=== PATIENT | male | born 1960 | race Caucasian/White ===

== ENCOUNTER 2022-09-13 16:11 | Inpatient (IN) | payer OTHER, SELFPAY ==
[2022-09-13] MEDS ORDERED: Piperacillin/Tazobactam 3.375 GM in Sodium Chloride 0.9% 100 ML IVPB SCH (18:00)
[2022-09-13] MEDS ORDERED: Dextrose 5% in Water 1,000 ML IV PRN (18:04)
[2022-09-13] MEDS ORDERED: Dextrose 50% Abboject 50 ML SYRINGE SLOW IVP PRN (18:04)
[2022-09-13] MEDS: D5 1/2 NS w/20 mEq KCL 1,000 ML IV SCH (18:14)
[2022-09-13 18:24] VITALS: BMI 49.8
[2022-09-13] MEDS: Morphine 4 MG/ML VIAL SLOW IVP PRN (22:17)
[2022-09-13] MEDS: Ondansetron PF 4 MG/2 ML Vial IVP PRN (22:18)
[2022-09-13] MEDS: Piperacillin/Tazobactam 3.375 GM in Sodium Chloride 0.9% 100 ML IVPB SCH (22:18)
[2022-09-14] MEDS ORDERED: Acetaminophen 325 MG TAB PO PRN (04:11)
[2022-09-14] MEDS: Morphine 4 MG/ML VIAL SLOW IVP PRN ×2 (04:17→17:50)
[2022-09-14] MEDS: Ondansetron PF 4 MG/2 ML Vial IVP PRN (04:17)
[2022-09-14] MEDS: D5 1/2 NS w/20 mEq KCL 1,000 ML IV SCH ×2 (04:21→09:40)
[2022-09-14] MEDS: Piperacillin/Tazobactam 3.375 GM in Sodium Chloride 0.9% 100 ML IVPB SCH ×3 (05:24→21:17)
[2022-09-14 06:31] LABS: ALT (SGPT) 72 U/L (8-55); AST (SGOT) 30 U/L (5-34); Albumin 3.6 g/dL (3.5-5.0); Alkaline Phosphatase 342 U/L (40-110); Anion Gap 17 mmol/L (10-20); BUN (Urea Nitrogen) 14 mg/dL (8.4-25.7); Bilirubin, Direct 1.6 mg/dL (0.1-0.3); Bilirubin, Total 2.2 mg/dL (0.2-1.2); Calc. Creatinine Clearance 192 mL/min (70-130); Calcium 9.3 mg/dL (7.8-10.44); Carbon Dioxide 19 mmol/L (22-29); Chloride 97 mmol/L (98-107); Estimated GFR 92; Glucose 135 mg/dL (70-105); Lipase 17 U/L (8-78); Potassium 4.4 mmol/L (3.5-5.1); Protein, Total 7.4 g/dL (6.0-8.3); Sodium 129 mmol/L (136-145)
[2022-09-14 06:52] LABS: Band 7 % (5-11); Hemoglobin 16.4 g/dL (14.0-18.0); Lymphocytes 6 % (21-51); MDiff Complete? YES; Mean Corpuscular HGB CONC 33.8 g/dL (32.0-36.0); Mean Corpuscular Hemoglobin 33.1 pg (27.0-31.0); Mean Corpuscular Volume 97.8 fl (78.0-98.0); Mean Platelet Volume 6.9 fL (7.4-10.4); Monocytes 5 % (0-10); Neutrophil 82 % (42-75); Platelet Count 218 10x3/uL (130-400); Platelet Morphology Comment Appears Adequate; RBC Morphology Normal; Red Blood Cell (RBC) Count 4.95 mill/uL (4.70-6.10); White Blood Cell (WBC) Count 17.9 10x3/uL (4.8-10.8)
[2022-09-14] MEDS ORDERED: Lisinopril 20 MG TAB PO SCH (09:00)
[2022-09-14] MEDS ORDERED: Amlodipine 10 MG TAB PO SCH (09:00)
[2022-09-14] MEDS: Sodium Chloride 0.9% 1,000 ML IV SCH ×2 (12:32→21:25)
[2022-09-14] MEDS ORDERED: Fentanyl 250 MCG/5 ML VIAL ONE (13:18)
[2022-09-14] MEDS ORDERED: SUGAMMADEX SODIUM 200 MG/2 ML VIAL ONE (13:18)
[2022-09-14] MEDS ORDERED: Bupivacaine/Epinephrine 0.25% 30 ML VIAL ONE (13:21)
[2022-09-14] MEDS ORDERED: Iopamidol 30 ML ONE (13:21)
[2022-09-14] MEDS ORDERED: Sodium Chloride 0.9% 100 ML ONE (13:27)
[2022-09-14] MEDS ORDERED: Piperacillin/Tazobactam 3.375 GM VIAL ONE (13:27)
[2022-09-14] MEDS ORDERED: Dexamethasone 20 MG/5 ML VIAL ONE (13:35)
[2022-09-14] MEDS ORDERED: Lidocaine 1% PF 5 ML VIAL ONE (13:35)
[2022-09-14] MEDS ORDERED: Ondansetron PF 4 MG/2 ML Vial ONE (13:35)
[2022-09-14] MEDS ORDERED: Rocuronium Bromide 10 MG/ML (10ML VIAL) ONE (13:35)
[2022-09-14] MEDS ORDERED: PROPOFOL 200 MG/20 ML VIAL ONE (13:35)
[2022-09-14] MEDS ORDERED: Succinylcholine Chloride 100 MG/5 ML SYRINGE FS ONE (13:35)
[2022-09-14] MEDS ORDERED: Dextrose 5% in Water 1,000 ML IV PRN (15:17)
[2022-09-14] MEDS ORDERED: Morphine 2 MG/ML VIAL SLOW IVP PRN (15:17)
[2022-09-14] MEDS ORDERED: Dextrose 50% Abboject 50 ML SYRINGE SLOW IVP PRN (15:17)
[2022-09-14] MEDS ORDERED: Ipratropium/Albuterol 3 ML NEB NEB PRN (15:17)
[2022-09-14] MEDS ORDERED: hydrALAZINE 20 MG/ML VIAL SLOW IVP PRN (15:17)
[2022-09-14] MEDS ORDERED: Promethazine HCl 25 MG/ML VIAL IM PRN ×2 (15:17→15:28)
[2022-09-14] MEDS ORDERED: Ondansetron PF 4 MG/2 ML Vial IVP PRN (15:17)
[2022-09-14] MEDS ORDERED: Mag-Al 1200 mg/1200 mg/30 ML UDCUP PO PRN (15:17)
[2022-09-14] MEDS ORDERED: Calcium Carbonate 500 MG ChewTAB PO PRN (15:17)
[2022-09-14] MEDS ORDERED: Morphine 4 MG/ML VIAL SLOW IVP PRN (15:17)
[2022-09-14] MEDS ORDERED: Ondansetron HCl/PF 4 MG/2 ML Vial IVP PRN (15:28)
[2022-09-14] MEDS ORDERED: HYDROmorphone 2 MG/ML VIAL SLOW IVP PRN (15:28)
[2022-09-14] MEDS ORDERED: fentaNYL 50 mcg/mL 1 mL Vial ONE ×2 (15:37→16:03)
[2022-09-14] MEDS: Ketorolac Tromethamine 30 MG/ML VIAL IVP SCH ×2 (17:02→23:58)
[2022-09-14] MEDS: Famotidine/PF 20 mg/2ml Vial SLOW IVP SCH (21:18)
[2022-09-14] MEDS: Famotidine 20 MG TAB PO SCH (21:18)
[2022-09-14] MEDS: HYDROcodone/Acetaminophen 10/325 mg Tablet PO PRN (21:24)
[2022-09-14] MEDS: Insulin Regular 300 UNITS/3 ML VIAL SC PRN (21:30)
[2022-09-15] MEDS: Piperacillin/Tazobactam 3.375 GM in Sodium Chloride 0.9% 100 ML IVPB SCH ×3 (05:50→21:42)
[2022-09-15] MEDS: Ketorolac Tromethamine 30 MG/ML VIAL IVP SCH ×4 (05:55→23:48)
[2022-09-15] MEDS: Sodium Chloride 0.9% 1,000 ML IV SCH (05:56)
[2022-09-15] MEDS: Insulin Regular 300 UNITS/3 ML VIAL SC PRN ×2 (06:10→11:25)
[2022-09-15 07:17] LABS: #Lymphocytes 0.9 thou/uL (1.20-3.40); #Monocytes 0.7 thou/uL (0.11-0.59); %Basophils 0.3 % (0.0-1.0); %Eosinophils 0.1 % (0.0-10.0); %Lymphocytes 6.3 % (21.0-51.0); %Monocytes 5.2 % (0.0-10.0); %Neutrophils 88.2 % (42.0-75.0); Hemoglobin 15.7 g/dL (14.0-18.0); Mean Corpuscular HGB CONC 31.2 g/dL (32.0-36.0); Mean Corpuscular Hemoglobin 31.5 pg (27.0-31.0); Mean Platelet Volume 6.9 fL (7.4-10.4); Platelet Count 237 10x3/uL (130-400); Red Blood Cell (RBC) Count 4.98 mill/uL (4.70-6.10); White Blood Cell (WBC) Count 13.6 10x3/uL (4.8-10.8)
[2022-09-15 07:22] LABS: Hemoglobin A1c 5.6 % (4.0-6.0)
[2022-09-15 07:39] LABS: ALT (SGPT) 64 U/L (8-55); AST (SGOT) 39 U/L (5-34); Albumin 3.6 g/dL (3.5-5.0); Alkaline Phosphatase 287 U/L (40-110); Anion Gap 15 mmol/L (10-20); BUN (Urea Nitrogen) 22 mg/dL (8.4-25.7); Bilirubin, Total 1.6 mg/dL (0.2-1.2); Calc. Creatinine Clearance 112 mL/min (70-130); Calcium 8.8 mg/dL (7.8-10.44); Carbon Dioxide 22 mmol/L (22-29); Chloride 96 mmol/L (98-107); Estimated GFR 70; Globulin 3.8 g/dL (2.4-3.5); Glucose 196 mg/dL (70-105); Lipase 9 U/L (8-78); Magnesium 1.9 mg/dL (1.6-2.6); Potassium 4.3 mmol/L (3.5-5.1); Protein, Total 7.4 g/dL (6.0-8.3); Sodium 129 mmol/L (136-145)
[2022-09-15 08:04] LABS: HBCM Index 0.08 S/CO (0-0.79); HBSAg Index 0.21 S/CO (0-0.99); Hep A IgM AB Non-Reactive (NonReactive); Hep A IgM S/CO 0.18 S/CO (0-0.79); Hep B Surf Ag Non-Reactive S/CO (NonReactive); Hepatitis B Core IgM Abs Non-Reactive (NonReactive)
[2022-09-15] MEDS: HYDROcodone/Acetaminophen 10/325 mg Tablet PO PRN ×3 (09:21→23:48)
[2022-09-15] MEDS: Famotidine 20 MG TAB PO SCH ×2 (09:21→21:42)
[2022-09-15] MEDS: Famotidine/PF 20 mg/2ml Vial SLOW IVP SCH ×2 (09:22→21:44)
[2022-09-15] MEDS ORDERED: Dextrose 50% Abboject 50 ML SYRINGE SLOW IVP PRN (12:12)
[2022-09-15] MEDS ORDERED: HumaLOG 300 UNITS/3 ML VIAL SC PRN (12:12)
[2022-09-15] MEDS ORDERED: Dextrose 5% in Water 1,000 ML IV PRN (12:12)
[2022-09-15] MEDS: HumaLOG 300 UNITS/3 ML VIAL SC PRN (17:12)
[2022-09-16] MEDS: Ketorolac Tromethamine 30 MG/ML VIAL IVP SCH ×2 (05:29→12:31)
[2022-09-16] MEDS: Piperacillin/Tazobactam 3.375 GM in Sodium Chloride 0.9% 100 ML IVPB SCH ×2 (05:30→15:57)
[2022-09-16 06:29] LABS: #Eosinphils 0.1 thou/uL (0.0-0.7); #Lymphocytes 1.4 thou/uL (1.20-3.40); #Monocytes 1.2 thou/uL (0.11-0.59); #Neutrophils 10.6 thou/uL (1.40-6.50); %Basophils 0.3 % (0.0-1.0); %Eosinophils 0.8 % (0.0-10.0); %Lymphocytes 10.7 % (21.0-51.0); %Monocytes 8.7 % (0.0-10.0); %Neutrophils 79.4 % (42.0-75.0); Hemoglobin 14.4 g/dL (14.0-18.0); Mean Corpuscular HGB CONC 34.2 g/dL (32.0-36.0); Mean Corpuscular Hemoglobin 33.7 pg (27.0-31.0); Mean Corpuscular Volume 98.6 fl (78.0-98.0); Mean Platelet Volume 6.9 fL (7.4-10.4); Platelet Count 222 10x3/uL (130-400); RBC Distribution Width 11.9 % (11.5-14.5); Red Blood Cell (RBC) Count 4.26 mill/uL (4.70-6.10); White Blood Cell (WBC) Count 13.3 10x3/uL (4.8-10.8)
[2022-09-16 06:48] LABS: ALT (SGPT) 46 U/L (8-55); AST (SGOT) 23 U/L (5-34); Albumin 2.9 g/dL (3.5-5.0); Alkaline Phosphatase 229 U/L (40-110); Anion Gap 13 mmol/L (10-20); BUN (Urea Nitrogen) 23 mg/dL (8.4-25.7); Bilirubin, Total 1.7 mg/dL (0.2-1.2); Calc. Creatinine Clearance 122 mL/min (70-130); Calcium 8.2 mg/dL (7.8-10.44); Carbon Dioxide 23 mmol/L (22-29); Chloride 96 mmol/L (98-107); Estimated GFR 77; Globulin 3.6 g/dL (2.4-3.5); Glucose 175 mg/dL (70-105); Magnesium 1.8 mg/dL (1.6-2.6); Potassium 4.2 mmol/L (3.5-5.1); Protein, Total 6.5 g/dL (6.0-8.3); Sodium 128 mmol/L (136-145)
[2022-09-16] MEDS: Famotidine/PF 20 mg/2ml Vial SLOW IVP SCH (08:13)
[2022-09-16] MEDS: Famotidine 20 MG TAB PO SCH (08:14)
[2022-09-16] MEDS ORDERED: Amlodipine 10 MG TAB PO SCH (10:30)
[2022-09-16] MEDS: HYDROcodone/Acetaminophen 10/325 mg Tablet PO PRN (10:55)
[2022-09-16] MEDS: HumaLOG 300 UNITS/3 ML VIAL SC PRN (12:30)
[2022-09-16 15:44] VITALS: BP 171/83; TEMP 97.8
[2022-09-17] MEDS ORDERED: Amlodipine 10 MG TAB PO SCH (09:00)
[2022-09-18 12:06] LABS: Hep C IgG Ab Non-Reactive (NonReactive); Hep C Index 0.12 S/CO (0-0.79)
== END 2022-09-16 15:43 | disposition home or self-care (01) | DRG 418 ==
LOC: SJJU 17:14
PROVIDERS: ADMIT Surgery; ATTEND Surgery
PROC: 0FT44ZZ Resection of Gallbladder, Percutaneous Endoscopic Approach (ICD-10-PCS; principal; 2022-09-14)
PROC: BF141ZZ Fluoroscopy of Gallbladder, Bile Ducts and Pancreatic Ducts using Low Osmolar Contrast (ICD-10-PCS; 2022-09-14)
DX: K81.0 Acute cholecystitis (principal); E87.1 Hypo-osmolality and hyponatremia; E66.9 Obesity, unspecified; E11.9 Type 2 diabetes mellitus without complications; K82.A1 Gangrene of gallbladder in cholecystitis; I10 Essential (primary) hypertension; R79.89 Other specified abnormal findings of blood chemistry; R00.0 Tachycardia, unspecified; E86.0 Dehydration; D72.829 Elevated white blood cell count, unspecified; B96.1 Klebsiella pneumoniae [K. pneumoniae] as the cause of diseases classified elsewhere; Z68.36 Body mass index [BMI] 36.0-36.9, adult; Z98.890 Other specified postprocedural states; Z79.899 Other long term (current) drug therapy; Z82.49 Family history of ischemic heart disease and other diseases of the circulatory system; Z80.1 Family history of malignant neoplasm of trachea, bronchus and lung
CPT/HCPCS: 36415; 36416; 47532; 80048; 80053; 80074; 80076; 83036; 83690; 83735; 84443; 85025; 87040; 87070; 87077; 87186; 87205; 88304; 93005; 93010; C1889; J1100; J1650; J1815; J1885; J2270; J2405; J2543; J2704; J3010; J3480; J3490; J7050; Q9967